=== PATIENT | male | born 1985 | race Caucasian/White ===

== ENCOUNTER 2024-12-16 15:33 | Emergency (ER) | payer BC, SELFPAY ==
[2024-12-16 15:36] VITALS: BP 137/86; PULSE 73; RESP 18; TEMP 36.2; O2SAT 96; BMI 37.7
--- NOTE | 2024-12-16 15:49 | ED.GENADULT ---
HPI - General Adult General Chief complaint: Back Injury/Pain Stated complaint: Back pain Time Seen by Provider: 12/16/24 15:43 Source: patient Mode of arrival: ambulatory Limitations: no limitations History of Present Illness HPI narrative: [age] year male presents today with back pain radiating down the left leg. Patient states that the pain started yesterday morning. The night before he was doing some heavy lifting at work. Patient does smoke, denies any other medical issues. Does not take any medications. Denies any saddle anesthesia, difficulty walking or numbness of the extremity. Denies any fevers or chills. Pain is located in the left lower back and not in the center of the back. He denies any recent illness. Related Data Home Medications ?Medication ?Instructions ?Recorded ?Confirmed No Known Home Medications 12/16/24 12/16/24 Previous Rx's ?Medication ?Instructions ?Recorded ketorolac 10 mg tablet 10 mg PO TID 5 days #15 tabs 12/16/24 prednisone 20 mg tablet 20 mg PO DIRECTED 9 days #18 12/16/24 tabs Allergies Allergy/AdvReac Type Severity Reaction Status Date / Time Penicillins Allergy Unknown Verified 12/16/24 15:41 Review of Systems Status of ROS: Reports: 10 or more systems reviewed and unremarkable except as noted in History and below PFSH PFS Social History Smoking Status: Never smoker Do you use any of these nicotine containing products: None Second hand tobacco smoke exposure: No How often do you have a drink containing alcohol: never How often do you have six or more drinks on one occasion: Never AUDIT-C Alcohol total score: 0 Non-prescribed substance use: denies use service: No Exam Narrative: Exam Narrative: Well-nourished well-developed patient, clearly uncomfortable. Alert and oriented. Answers questions appropriately. Mood and affect are appropriate. Thoughts are goal oriented and rational. No tangential or magical thinking noted. Patient speaks in full sentences without needing to catch his breath. HEENT: Normocephalic atraumatic. Extraocular muscles are intact. Conjunctivae are moist without any icterus noted. Cardiovascular: Heart is regular rate and rhythm. Lungs: Clear to auscultation bilaterally. Abdomen: Soft and nontender nondistended with normal bowel sounds. Back: Normal appearance. some tenderness in the left paraspinal musculature of the lumbar spine. No tenderness palpation of the thoracic or lumbar spine. Straight leg raise test is positive on the left. Strength is 5/5 of the lower extremities both distal and proximal muscle groups, reflexes are 2+ symmetric at the knees. Const: Vital Signs, click to edit/add: Vital Signs - 24 hr 12/16/24 15:36 Temperature 97.1 F L Pulse Rate [Right Pulse Oximeter] 73 Respiratory Rate 18 Blood Pressure [Ri ght Upper Arm] 137/86 Pulse Oximetry 96 Oxygen Delivery Me thod Nasal Cannula Course Course ED Course: Toradol 60mg IM given in the ER today. Vital Signs Vital signs: Initial Vital Signs Temperature 97.1 F L 12/16/24 15:36 Temperature Source Temporal Artery Scan 12/16/24 15:36 Pulse Rate 73 12/16/24 15:36 Pulse Rhythm Regular 12/16/24 15:36 Respiratory Rate 18 12/16/24 15:36 Blood Pressure 137/86 12/16/24 15:36 Blood Pressure Mean 103 12/16/24 15:36 Blood Pressure Position Sitting 12/16/24 15:36 Pulse Oximetry 96 12/16/24 15:36 Oxygen Delivery Method Nasal Cannula 12/16/24 15:36 Vital Signs Temperature 97.1 F L 12/16/24 15:36 Pulse Rate 73 12/16/24 15:36 Respiratory Rate 18 12/16/24 15:36 Blood Pressure 137/86 12/16/24 15:36 Pulse Oximetry 96 12/16/24 15:36 Oxygen Delivery Method Nasal Cannula 12/16/24 15:36 Temperature 97.1 F L 12/16/24 15:36 Pulse Rate 73 12/16/24 15:36 Respiratory Rate 18 12/16/24 15:36 Blood Pressure 137/86 12/16/24 15:36 Pulse Oximetry 96 12/16/24 15:36 Oxygen Delivery Method Nasal Cannula 12/16/24 15:36 Medications Administered Medications: Discontinued Medications Generic Name Dose Route Start Last Admin Trade Name Freq PRN Reason Stop Dose Admin Ketorolac Tromethamine 60 mg 12/16/24 16:00 12/16/24 15:53 Ketorolac 60 Mg/2 Ml Inj IM 12/16/24 16:01 60 mg ONCE ONE Administration Medical Decision Making MDM Narrative Medical decision making narrative: 39-year-old male with low back pain with radiculopathy. Probable herniated disc. Will treat with prednisone taper and Toradol. Patient will follow-up with primary care next week. Discharge Plan Discharge Clinical Impression: Lumbar radiculopathy Patient Disposition: Home, Self-Care Condition: Stable Instructions: Lumbar Radiculopathy (ED) Additional Instructions: Take all steroid as prescribed. Take ketorolac (anti-inflammatory, pain medication) as needed/as prescribed. Take on a full stomach. Would also recommend that for the next week while on the steroid and ketorolac you take omeprazole (which you can purchase [id number]) to protect the stomach lining, as these medications can be harsh on stomach. Can also take acetaminophen as needed/as directed. Recommend you follow-up with your primary care provider next week. Prescriptions: New prednisone 20 mg tablet 20 mg PO DIRECTED 9 Days Qty: 18 0RF Rx Instructions: 60 mg p.o. daily for 3 days (3 tablets daily on day 1-3), 40 mg daily for 3 days (2 tablets daily on days 4-6), 20 mg daily for 3 days (1 tablet daily on days 7-9). ketorolac 10 mg tablet 10 mg PO TID 5 Days Qty: 15 0RF No Action No Known Home Medications Stand Alone Forms: [facility] Info Instructions
[2024-12-16] MEDS: KETOROLAC 60 MG/2 ML inj IM (15:53)
--- OUTSIDE RECORDS SUMMARY | 2024-12-16 16:21 | XMS_ITS | Clinical Summary ---
Author Organization [facility] Address [address] [place] [id number] Care Team Providers Care Turbine Blade Assembler Name Role Phone Liban Chauhan MD Primary Care Provider Allergies Active Allergy Reactions Criticality Noted Date Comments Penicillins *Unknown 06/21/2018 childhood Medications No known medications Active Problems No known active problems Encounters Date Type Department Care Team Description 12/15/2024 12:00 PM CDT Office Visit [facility] [id number] [place] [id number] Rishi Donaldson MD Back Pain (Low back pain traveling down left leg x1 day. Ongoing back pain for 1 year) 12/15/2024 Travel from Last 3 Months Immunizations Immunization Administration Dates Next Due COVID-19 vaccine (Aiyana-J& J) CHLOE FERNANDES 01/29/2021 DTP 12/14/1992 Hepatitis B (Peds) 03/01/2003, 0,02/03/2000,1999 Influenza, IIV3 (Age >=3 years) 08/11/2007 MMR 10/08/1998 Oral Polio Vaccine 12/14/1992 Td (Age >=7 Years) 01/06/2000 Tdap 03/21/2010 Social History Tobacco Use Types Packs/Day Years Used Date Smoking Tobacco: Every Day Cigarettes 0.3 9.5 Started: 06/21/2015 Smokeless Tobacco: Never Tobacco Cessation:Ready to Q uit: No; Counseling Given: Yes Alcohol Use Standard Drinks/Week Comments Yes 0 (1 standard drink = 0.6 oz pur e alcohol) PHQ-2 Answer Date Recorded PHQ-2 TOTAL SCORE 0 01/04/2021 Social Connections Answer Date Recorded Frequency of Communication with Friends and Fami ly Not on file 09/28/2021 Financial Resource Strain Answer Date R ecorded Difficulty of Paying Living Expenses Not on file 09/28/2021 Difficulty of Paying Living Expenses Not on file 09/28/2021 Sex and Gender Information Value Date Recorded Sex Assigned at Not on file Legal Sex Male 10:10 AM CDT Gender Identity Not on file Sexual Orientation Not on file Obstetrics History Last Filed Vital Signs Vital Sign Reading Time Taken Comments Blood Pressure 120/64 12/15/2024 11:49 AM CDT Pulse 80 12/15/2024 11:49 AM CDT Temperature 36.9 C (98.4 F) 01/04/2021 10:40 AM CDT Respiratory Rate - - Oxygen Saturation - - Inhaled Oxygen Concentration - - Weight 122.9 kg (271 lb) 12/15/2024 11:49 AM CDT Height 177.8 cm (5' 10) 01/07/2021 4:26 PM CDT Body Mass Index 38.88 01/07/2021 4:26 PM CDT Plan of Treatment Health Maintenance Due Date Last Done Comments HIV for age 15-65 2002 Hepatitis C screening for age 18-79 2005 Pneumococcal series for age 6-49 (1 of 2 - PCV) 2006 Tetanus booster 03/21/2020 03/21/2010, 01/06/2000 BMI (ht and wt on same day) for age 18+ 01/07/2022 01/07/2021, 06/21/2018 Depression screening for age 12+ 01/07/2022 01/07/2021, 01/04/2021, 06/21/2018 Lipids for age 35-44 2022 COVID-19 vaccine series (2 - 2023- season) 2024 01/29/2021 Influenza Vaccine (#1) 2024 08/11/2007 Tdap Completed 03/21/[id number] [place] [id number] [employer]UE CROSS OF NON-MD-ITS Care Teams Turbine Blade Assembler Relationship Specialty [place] [id number] [place] [address] PCP - General Family Practice 06/21/18
== END 2024-12-16 16:38 | disposition home or self-care (01) ==
PROVIDERS: Emergency Provider Family Medicine
DX: M54.16 Radiculopathy, lumbar region (principal)
CPT/HCPCS: 96372; 99283; 99284; J1885

== ENCOUNTER 2025-05-20 09:06 | Emergency (ER) | payer BC, SELFPAY ==
--- OUTSIDE RECORDS SUMMARY | 2025-05-20 09:07 | XMS_ITS | Clinical Summary ---
Author Organization [facility] Address [address] [place] [address] Care Team Providers Care Skip Locator Name Role Phone Liban Chauhan MD Primary Care Provider Allergies Active Allergy Reactions Criticality Noted Date Comments Penicillins *Unknown 06/21/2018 childhood Medications No known medications Active Problems No known active problems Immunizations Immunization Administration Dates Next Due COVID-19 vaccine (Aiyana-J& J) CHLOE FERNANDES 01/29/2021 DTP 12/14/1992 Hepatitis B (Peds) 03/01/2003, 0,02/03/2000,1999 Influenza, IIV3 (Age >=3 years) 08/11/2007 MMR 10/08/1998 Oral Polio Vaccine 12/14/1992 Td (Age >=7 Years) 01/06/2000 Tdap 03/21/2010 Social History Tobacco Use Types Packs/Day Years Used Date Smoking Tobacco: Every Day Cigarettes 0.3 9.9 Started: 06/21/2015 Smokeless Tobacco: Never Tobacco Cessation:Ready [...] age 15-65 2002 Hepatitis C screening for ag e 18-79 2005 Pneumococcal series for age 6-49 (1 of 2 - PCV) 2006 Tetanus booster 03/21/2020 03/21/2010, 01/06/2000 BMI (ht and wt on same day) for age 18+ 01/07/2022 01/07/2021, 06/21/2018 Depression screening for age 12+ 01/07/2022 01/07/2021, 01/04/2021, 06/21/2018 Lipids for age 35-44 2022 COVID-19 vaccine series (2 - season) 2024 01/29/2021 Influenza Vaccine (#1) 2025 08/11/2007 Hepatitis B series for 19+ Completed 03/01, 07/07/2000, 02/03/2000, Additional history exists Insurance [employer]-LA-ITS Care Teams Skip Locator Relationship Specialty [place] [id number] [place] [address] PCP - General Family Practice 06/21/18
[2025-05-20 09:13] VITALS: BP 159/91; PULSE 72; RESP 18; TEMP 36.5; O2SAT 97
--- NOTE | 2025-05-20 09:30 | ED.BACK ---
HPI - Back Pain/Injury General Chief Complaint: Back Injury/Pain Stated Complaint: back pain Time Seen by Provider: 05/20/25 09:16 History of Present Illness HPI Narrative: Patient is reasonably healthy 39-year-old gentleman comes in today with left-sided low back pain. He cleaned out the garage should several days ago and has had pain with radiculopathy down the left buttock since. He has had no recent injuries. No fevers no chills no night sweats no cough no shortness of breath no numbness no tingling no difficulties with urination or bowel movements. Was treated for similar episode several months ago with shot of Toradol and a short course of prednisone. No other concerns. Related Data Home Medications ?Medication ?Instructions ?Recorded ?Confirmed No Known Home Medications 12/16/24 12/16/24 Previous Rx's ?Medication ?Instructions ?Recorded ketorolac 10 mg tablet 10 mg PO TID 5 days #15 tabs 12/16/24 prednisone 20 mg tablet 20 mg PO DIRECTED 9 days #18 12/16/24 tabs Allergies Allergy/AdvReac Type Severity Reaction Status Date / Time Penicillins Allergy Unknown Verified 05/20/25 09:13 Review of Systems Status of ROS: Reports: 10 or more systems reviewed and unremarkable except as noted in History and below PFSH PFS Social History Smoking Status: Never smoker Do you use any of these nicotine containing products: None Second hand tobacco smoke exposure: No How often do you have a drink containing alcohol: never How often do you have six or more drinks on one occasion: Never AUDIT-C Alcohol total score: 0 Non-prescribed substance use: denies use service: No Exam Narrative: Exam Narrative: EXAM GENERAL: Patient appears comfortable and well. EYES: No scleral icterus. LYMPH: No supraclavicular or cervical lymphadenopathy. SKIN: Visible skin seen during exam normal or with benign process only. EXT: No dependent lower extremity pedal edema. HEART: Regular rate and rhythm with no murmurs, rubs, or gallops. LUNGS: Clear to auscultation bilaterally with no crackles or wheezes. ABD: Soft, non tender, non distended. PSYCH: Good eye contact, speech is not pressured. Neurologic cranial nerves 2-12 grossly intact no focal defects. Const: Vital Signs, click to edit/add: Vital Signs - 24 hr 05/20/25 09:13 Temperature 97.7 F Pulse Rate [Pulse Oximeter] 72 Respiratory Rate 18 Blood Pressure [Ri ght Upper Arm] 159/91 H Pulse Oximetry 97 Oxygen Delivery Me thod Room Air Course Course ED Course: Patient seen examined. No findings on exam. Do think this is acute strain I did treated with Toradol 30 mg IM followed by short course of prednisone Tylenol as needed. Would recommend primary care follow-up. Differential diagnosis includes but not limited to low back strain diskitis herniated disc facet arthropathy. Vital Signs Vital signs: Initial Vital Signs Temperature 97.7 F 05/20/25 09:13 Temperature Source Temporal Artery Scan 05/20/25 09:13 Pulse Rate 72 05/20/25 09:13 Respiratory Rate 18 05/20/25 09:13 Blood Pressure 159/91 H 05/20/25 09:13 Blood Pressure Mean 113 H 05/20/25 09:13 Pulse Oximetry 97 05/20/25 09:13 Oxygen Delivery Method Room Air 05/20/25 09:13 Vital Signs Temperature 97.7 F 05/20/25 09:13 Pulse Rate 72 05/20/25 09:13 Respiratory Rate 18 05/20/25 09:13 Blood Pressure 159/91 H 05/20/25 09:13 Pulse Oximetry 97 05/20/25 09:13 Oxygen Delivery Method Room Air 05/20/25 09:13 Temperature 97.7 F 05/20/25 09:13 Pulse Rate 72 05/20/25 09:13 Respiratory Rate 18 05/20/25 09:13 Blood Pressure 159/91 H 05/20/25 09:13 Pulse Oximetry 97 05/20/25 09:13 Oxygen Delivery Method Room Air 05/20/25 09:13 Discharge Plan Discharge Clinical Impression: Strain of lumbar region Patient Disposition: Home, Self-Care Condition: Stable Instructions: Back Pain (ED) Additional Instructions: Prednisone as directed Tylenol 1000 mg 3 times a day as needed. Ice Advanced activity as tolerated Follow-up with your doctor as needed. Activity Level: No Restrictions Discharge Diet: Regular Prescriptions: No Action No Known Home Medications prednisone 20 mg tablet 20 mg PO DIRECTED 9 Days Qty: 18 0RF Rx Instructions: 60 mg p.o. daily for 3 days (3 tablets daily on day 1-3), 40 mg daily for 3 days (2 tablets daily on days 4-6), 20 mg daily for 3 days (1 tablet daily on days 7-9). ketorolac 10 mg tablet 10 mg PO TID 5 Days Qty: 15 0RF Follow Up/Referrals: Provider,Not a Local [Primary Care Provider, Family Practice] Stand Alone Forms: [facility] Info Instructions
== END 2025-05-20 09:47 | disposition home or self-care (01) ==
LOC: ED 09:40
PROVIDERS: Emergency Provider Internal Medicine
DX: S39.012A Strain of muscle, fascia and tendon of lower back, initial encounter (principal); X50.1XXA Overexertion from prolonged static or awkward postures, initial encounter
CPT/HCPCS: 96372; 99283; J1885